=== PATIENT | male | born 1980 | race Caucasian/White ===

== ENCOUNTER 2017-06-03 13:32 | Inpatient (IN) | payer BC ==
--- NOTE | 2017-06-03 13:33 | HP ---
SUPERVISING PHYSICIAN: Dillon Grey M.D. CHIEF COMPLAINT: Shortness of breath and cough. HISTORY OF PRESENT ILLNESS: Mr. Amezcua is a 36 year-old male patient with no significant medical history. He presented to [facility] walk-in clinic today and was seen by Chika Felipe for ongoing respiratory illness. He notes that he has been struggling with symptoms that include a productive cough, nasal congestion, sore throat and shortness of breath. He had been to a previous walk-in clinic and was given Albuterol inhaler, a 7 day course of Augmentin and a 5 day course of Albuterol. He noted that his symptoms had initially improved after a few days on antibiotics, however on day 3 they again returned and have been slowly worsening over the last 4 to 5 days. He noted that he had been having some shortness of breath with some wheezing and had been having to utilize his Albuterol inhaler every 2 to 3 hours to get any significant symptom relief. In the clinic, laboratory studies showed that he had a mild leukocytosis of 11,400 with early left shift. His chemistries were significant for an elevated blood sugar of 352 with BUN 12, creatinine 0.8 and hemoglobin A1c of 10.6. He has had multiple Influenza A and B swabs, both at the previous walk-in clinic and this current clinic that have been negative as well as a Strep screen. His x-ray today in the clinic per radiology interpretation for two view chest showed mild right basilar atelectasis with some right hemidiaphragm elevation, otherwise clear lungs with no acute osseous abnormalities noted. Given that he was continuing to be symptomatic with worsening shortness of breath and had failed to respond to aggressive outpatient treatment plan, the patient is now going to be directly admitted for further evaluation and treatment of acute bronchitis with concerns for developing right sided pneumonia and new onset of diabetes mellitus. PAST MEDICAL HISTORY: No significant medical history listed. PAST SURGICAL HISTORY: 1. Tonsillectomy and adenoidectomy. 2. Hernia repair at age 13. HOME MEDICATIONS: No chronic home medications listed. He has recently been on acute medications to include: 1. Augmentin b.i.d. for 7 days. 2. Albuterol inhaler. 3. Prednisone 5 day course. ALLERGIES: NO KNOWN DRUG ALLERGIES. FAMILY HISTORY: Noncontributory. SOCIAL HISTORY: The patient lives in [place], [place]. He works for [employer]. He is single. He drinks on a rare occasion. He has never smoked tobacco and denies any illicit drug use. REVIEW OF SYSTEMS: CONSTITUTIONAL: Notes that he has had some fevers but has not actually taken his actual temperature and has had some chills on and off for the last several days. He has had some general malaise with some weight loss of approximately 15 pounds within the last 30 days. HEENT: Has some sinus congestion with clear drainage and a sore throat. No ear aches. No headaches. CHEST: As per history of present illness, productive cough worsening with shortness of breath. HEART: No chest pains, palpitations or syncopal episodes. ABDOMEN: Soft, non-tender. Positive bowel sounds. GENITOURINARY: Note that he has had some increased urinary frequency but denies any dysuria or hematuria. NEUROLOGIC: Denies any neurological deficits, headaches, vision changes. ENDOCRINE: Notes that he has had some polydipsia, polyuria and unintentional weight loss over the last 30 days, and is unaware of having any trouble with blood sugars. PHYSICAL EXAMINATION: VITAL SIGNS: Temperature on admission to the Medical/Surgical floor 100.4, pulse 112, blood pressure 123/86, respirations 22, satting 97% on room air. Admission weight 93.8 kg. GENERAL: On admission to the Medical/Surgical floor, the patient appears to be comfortable, tired but in no acute distress. He is alert, well nourished but appears to be somewhat dehydrated. HEENT: Tympanic membranes were clear bilaterally. Oropharynx was mildly erythematous with no lesions. Mucosal membranes were dry and pink. NECK: Non-tender, full range of motion without any jugular venous distention. CHEST: Lungs are diminished bilaterally with some faint rhonchi heard on the right posterior lung parr, middle more prominent with no obvious wheezing. CARDIOVASCULAR: ABDOMEN: Obese but soft, non-tender with positive bowel sounds. EXTREMITIES: No clubbing, cyanosis or edema. NEUROLOGIC: He was alert and oriented times three. LABORATORY: CBC completed in the clinic prior to admission showed leukocytosis of 11,400 with hemoglobin 15.8, hematocrit 45.0, platelet count 236,000. Differential showed an increased number of monocytes with no obvious left shift. Chemistries showed blood sugar 352, BUN 12, creatinine 0.8. Sodium 141 , potassium 3.8, CO2 of 27, calcium 9.6. Liver functions showed to be within normal limits. Urinalysis was pending. Strep screen at the clinic was negative. Influenza A and B was negative. RADIOLOGY: Two view chest film showed per radiology interpretation some mild right atelectasis with some right hemidiaphragm elevation. No other consolidation processes were noted. ASSESSMENT: 1. Influenza-like illness with acute bronchitis with concerns for developing right sided pneumonia having failed to respond to outpatient treatment plan with Augmentin, Prednisone and bronchodilators. 2. New onset diabetes with hemoglobin A1c of 10.5. 3. Dehydration secondary to hyperglycemia. PLAN: The patient will be admitted to the Medical/Surgical floor for ongoing treatment of upper respiratory infection with acute bronchitis having failed to respond to his outpatient treatment plan with concerns for early right sided pneumonia. Given that he is an undiagnosed diabetic with an elevated blood sugar and A1c, he will be started on insulin sliding scale per protocol. He will be on an ADA 1800 calorie diet. Will start him on DVT prophylaxis. He is not showing any significant wheezing or desaturation events. At this point will hold off on any further Solu-Medrol administration as he just came off of Prednisone pack. Will start him on some aggressive pulmonary hygiene with chest percussive therapy and DuoNeb treatments q.i.d. Will anticipate his length of stay to be 2 to 3 days. Will also give him a bolus of fluids in efforts to correct his underlying dehydration and continue with maintenance fluids with half normal saline with 20 of potassium at 150 an hour. He will need to be started on some oral therapy for underlying diabetes. Will start him on some Metformin 500 mg b.i.d. along with a sliding scale. He will need some indepth diabetic education and encourage followup with primary care provider and assistance with setting up with a primary care provider at discharge. He does reside in [place] but travels back and forth to [place], [place] quite often. I have encouraged him to continue followup with [facility] clinic if possible until he can further establish a healthcare provider closer to home. Will anticipate again discharging hopefully Tuesday or Tuesday depending on clinical reevaluation. Will plan to repeat a chest x-ray and lab studies in the morning. Until then, continue to monitor and treat appropriately. [facility][id number] [facility]
[2017-06-03] MEDS ORDERED: ALBUTEROL SULFATE 2.5 MG/3 ML VIAL NEB PRN (13:58)
[2017-06-03] MEDS ORDERED: ACETAMINOPHEN 325 MG TAB PO PRN (13:58)
[2017-06-03] MEDS ORDERED: ONDANSETRON INJ 4 MG/2 ML VIAL IV PRN (13:58)
[2017-06-03] MEDS ORDERED: DEXTROSE 50% 25 GM/50 ML SYG IV PRN (13:58)
[2017-06-03] MEDS ORDERED: GLUCAGON INJ 1 MG VIAL SUBCU PRN (13:58)
[2017-06-03] MEDS ORDERED: IV SET AND CAP CHANGE INJ INJ SCH (14:00)
[2017-06-03] MEDS ORDERED: SODIUM CHLORIDE 0.9% 1000ML 1,000 ML IVS ONE (14:02)
[2017-06-03] MEDS ORDERED: SODIUM CHL 0.9% 50ML MIN-BAG+ 50 ML IVPB ONE (14:11)
[2017-06-03] MEDS ORDERED: SODIUM CHLORIDE 0.9% 250ML 250 ML ONE (14:11)
[2017-06-03] MEDS ORDERED: cefTRIAXone SODIUM 1 GM VIAL ONE (14:12)
[2017-06-03] MEDS ORDERED: AZITHROMYCIN IV 500 MG VIAL IVPB ONE ×2 (14:12→14:46)
[2017-06-03] MEDS: cefTRIAXone SODIUM 1 GM in SODIUM CHL 0.9% 50ML MIN-BAG+ 50 ML IVPB SCH (14:32)
--- NOTE | 2017-06-03 14:39 | PCM.CORE ---
Physician DVT/VTE - Nurse DVT Assessment & Total Each Risk Factor Represents 3 Points: Medical PT with Hx of NC, CHF, Severe infection/sepsis Each Risk Factor is 1 Point: Obesity (BMI >25), Serious Lung disease (pnemonia < 1month, COPD, emphysema,etc) DVT Assessment Score: 5 - 5 or more Very High Risk Treatments: Early Ambulation *, Sequential Compression Device Pharmacological: Enoxaparin 40mg SQ Daily
[2017-06-03] MEDS: IPRATROPIUM/ALBUTEROL 3 ML VIAL INH SCH ×3 (14:46→20:06)
[2017-06-03] MEDS: AZITHROMYCIN IV 500 MG in SODIUM CHLORIDE 0.9% 250ML 250 ML IVPB SCH (14:54)
[2017-06-03] MEDS ORDERED: ENOXAPARIN SODIUM 40 MG/0.4 ML SYG SUBCU SCH (15:00)
[2017-06-03] MEDS: INSULIN LISPRO 100 UNITS/ML PEN SUBCU SCH ×2 (16:35→21:30)
[2017-06-03] MEDS: KCL 20MEQ/0.45% NS 1,000 ML IVS PRN (18:10)
[2017-06-04] MEDS: KCL 20MEQ/0.45% NS 1,000 ML IVS PRN ×3 (00:42→13:13)
--- NOTE | 2017-06-04 06:24 | RAD ---
Clinical History : Pneumonia , MAIN Exam : PA and lateral views of the chest 06/04/2017 7:00 AM MOHS SURGEON/GENERAL DERMATOLOGIST Comparisons : none Findings : The lungs are clear without focal consolidation or pleural effusion. The heart is normal in size. The mediastinal contours are normal in appearance. The thoracic spine is age appropriate. The shoulders are unremarkable. Limited evaluation of the upper abdomen demonstrates no gross abnormalities. Impression: No acute cardiopulmonary disease Electronically signed by: Demian Shannon MD 06/04/2017 6:23 AM MOHS SURGEON/GENERAL DERMATOLOGIST
[2017-06-04] MEDS ORDERED: PANTOPRAZOLE SODIUM IV 40 MG VIAL IV SCH (06:30)
[2017-06-04] MEDS: SODIUM CHLORIDE 0.9% (FLUSH) 10 ML SYG IV PRN ×2 (06:53→22:25)
[2017-06-04] MEDS: INSULIN LISPRO 100 UNITS/ML PEN SUBCU SCH ×4 (07:49→21:32)
[2017-06-04] MEDS: ENOXAPARIN SODIUM 40 MG/0.4 ML SYG SUBCU SCH (08:00)
[2017-06-04] MEDS: IPRATROPIUM/ALBUTEROL 3 ML VIAL INH SCH ×4 (08:46→20:57)
[2017-06-04] MEDS ORDERED: SODIUM CHLORIDE 0.9% 250ML 250 ML ONE (13:02)
[2017-06-04] MEDS ORDERED: cefTRIAXone SODIUM 1 GM VIAL ONE (13:03)
[2017-06-04] MEDS ORDERED: AZITHROMYCIN IV 500 MG VIAL IVPB ONE (13:03)
[2017-06-04] MEDS ORDERED: SODIUM CHL 0.9% 50ML MIN-BAG+ 50 ML IVPB ONE (13:03)
[2017-06-04] MEDS: cefTRIAXone SODIUM 1 GM in SODIUM CHL 0.9% 50ML MIN-BAG+ 50 ML IVPB SCH (13:13)
[2017-06-04] MEDS: AZITHROMYCIN IV 500 MG in SODIUM CHLORIDE 0.9% 250ML 250 ML IVPB SCH (14:51)
--- NOTE | 2017-06-04 16:03 | PN ---
DATE: 06/04/17 SUPERVISING PHYSICIAN: Dillon Grey M.D. SUBJECTIVE: The patient is lying in bed. Has no complaints of nausea, vomiting , diarrhea or constipation, chest pain or shortness of breath. He does say he still continues to cough quite a bit as well as he has occasional diaphoresis and chilling, although it is much improved since yesterday. We discussed at length his diabetes and methods of treatment as well as his infectious process and he agrees with the present plan of care. OBJECTIVE: VITAL SIGNS: He is afebrile, heart rate 100, blood pressure tourniquet 138/73, respiratory rate 18, O2 sat is 97% on room air. RESPIRATORY : Essentially clear to auscultation bilaterally. CARDIAC: Regular rate and rhythm. GASTROINTESTINAL: Abdomen is soft, nondistended, non-tender. Bowel sounds are positive. EXTREMITIES: No cyanosis, clubbing or edema. NEUROLOGIC: He is awake, alert and oriented times three. LABORATORY: WBC of 10.4, hemoglobin 13.5, hematocrit 39.6, neutrophils 50.4 with a blood glucose that has run between 173 and 283. Sodium 138, potassium 4 , chloride 104, carbon dioxide 27, BUN 10, creatinine 0.8, magnesium 2.1. TSH 1.01. Preliminary blood cultures show no growth after 24 hours. RADIOLOGY: Chest x-ray shows no acute cardiopulmonary processes. All other labs and films have been reviewed via the EMR. ASSESSMENT: 1. Influenza-like illness with acute bronchitis with concerns for developing right sided pneumonia having failed to respond to outpatient treatment plan with Augmentin, Prednisone and bronchodilators. 2. New onset diabetes with hemoglobin A1c of 10.5. 3. Dehydration secondary to hyperglycemia that is now improved. PLAN: We will continue present supportive care. I will discontinue his IV this evening as he is taking p.o. fluids and food without any problems. We discussed at length his plan of care for his diabetes. He is to continue on Metformin. I will start him on GLP-1 tomorrow. Will give him samples from [facility]. I will continue with his azithromycin and Ceftriaxone. He will be discharged home on a cephalosporin. I have ordered routine labs for in the morning. Hopefully he can be discharged tomorrow. We will continue to monitor the patient closely and followup as needed. Dr. Grey is the collaborating physician available for consultation. #[id number] [facility]
[2017-06-04] MEDS ORDERED: metFORMIN HCL 500 MG TAB ONE (16:45)
[2017-06-04] MEDS: metFORMIN HCL 500 MG TAB PO SCH (18:00)
[2017-06-05] MEDS ORDERED: PANTOPRAZOLE SODIUM TAB 40 MG PO SCH (06:30)
[2017-06-05] MEDS: metFORMIN HCL 500 MG TAB PO SCH (07:53)
[2017-06-05] MEDS: INSULIN LISPRO 100 UNITS/ML PEN SUBCU SCH (07:53)
[2017-06-05] MEDS: IPRATROPIUM/ALBUTEROL 3 ML VIAL INH SCH (08:44)
[2017-06-05 08:47] VITALS: O2SAT 96
[2017-06-05] MEDS: ENOXAPARIN SODIUM 40 MG/0.4 ML SYG SUBCU SCH (09:06)
[2017-06-05 10:05] VITALS: BP 136/87; TEMP 97.8
[2017-06-05] MEDS ORDERED: BYDUREON 2 MG SUBCU SCH (11:00)
--- NOTE | 2017-06-05 13:58 | DS ---
SUPERVISING PHYSICIAN: Dillon Grey M.D. DISCHARGE DIAGNOSIS: 1. Influenza-like illness with acute bronchitis and concerns for developing right sided pneumonia failing to respond to outpatient treatment plan with Augmentin, Prednisone and bronchodilators admitted to hospital and treated with IV antibiotics of azithromycin and Ceftriaxone. 2. New onset diabetes mellitus type 2 with hemoglobin A1c of 10.5 treated with Metformin and Bydureon as well as sliding scale with NovoLog insulin. 3. Dehydration secondary to hyperglycemia that has now improved. HISTORY OF PRESENT ILLNESS: This is a 36 year-old male patient with a known significant medical history that presented to the [facility] walk-in clinic for ongoing respiratory illness. He had been struggling with symptoms that included productive cough, nasal congestion, sore throat and shortness of breath. He had been given Albuterol and a 7 day course of Augmentin and a 5 day course of Albuterol at a previous walk-in clinic. His symptoms initially improved after the first office visit, but on the day that he presented to the walk-in clinic in [place] he had had some shortness of breath with wheezing. He had to utilize his Albuterol inhaler every 2 to 3 hours to get any relief. In the clinic, he had a mild leukocytosis of 11,400 with an early left shift. His chemistries were significant for an elevated blood sugar of 352 with a BUN of 12 and creatinine of 0.8 and hemoglobin A1c of 10.6. He had multiple Influenza A and B swabs at both of the previous walk-in clinics and they were negative as well as a negative Strep scree. His radiology in the clinic per radiology interpretation showed mild right basilar atelectasis with some right hemidiaphragm elevation, otherwise clear lungs with no acute osseous abnormalities noted. Given his continued symptoms with worsening shortness of breath failing to respond to aggressive outpatient treatment, the patient was directly admitted for further evaluation and treatment of acute bronchitis with concerns for developing right sided pneumonia and new onset of diabetes mellitus. HOSPITAL COURSE: The patient was placed on azithromycin and Rocephin and responded well to his treatments. He was also put on Metformin 500 b.i.d. as well as his blood sugars were checked a.c. and h.s., and given sliding scale NovoLog insulin. His WBCs normalized. His symptoms improved. He was given extensive diabetic education and then started on a GLP-1 Bydureon 2 mg weekly. At this point, he will be discharged. DISCHARGE PLAN: The patient will be discharged home in stable condition. He is to increase his activity as tolerated. He is to be on a diabetic diet which he was given extensive education. He is to increase his exercise with a goal of being 30 minutes daily for 5 to 6 days weekly. He is instructed to check his fasting blood sugar daily as well as his evening blood sugar as needed. He has a followup appointment with Rula Smith NP, on June 20 at 9:00 AM, to bring his blood glucose log. He is being discharged on Bydureon weekly as well as Metformin 500 mg b.i.d. If he tolerates his Metformin, we will increase it at his followup visit. He also will be discharged on Cefdinir 300 mg b.i.d. for 8 additional days. He is to return to the hospital or followup with his primary care physician for any further problems or complications. DISCHARGE MEDICATIONS: 1. Cefdinir. 2. Bydureon BCise. 3. Metformin. Dr. Grey is the collaborating physician available for consultation. #[id number] [facility]
== END 2017-06-05 11:20 | disposition home or self-care (01) | DRG 195 ==
LOC: MS 13:32
PROVIDERS: ADMIT Family Medicine; ATTEND Nurse Practitioner Family
DX: J11.00 Influenza due to unidentified influenza virus with unspecified type of pneumonia (principal); J20.9 Acute bronchitis, unspecified; E11.65 Type 2 diabetes mellitus with hyperglycemia; E86.0 Dehydration

== ENCOUNTER → 2017-06-03 | Outpatient (CLI) | payer BC | END | disposition home or self-care (01) | LOC: GMATM 14:02 | PROVIDERS: ATTEND Nurse Practitioner Family | DX: R73.9 Hyperglycemia, unspecified (principal) ==